=== PATIENT | female | born 1990 | race Caucasian/White ===

== ENCOUNTER 2017-03-31 00:02 | Day surgery (SDC) | payer OTHER ==
[2017-03-29 15:07] VITALS: BP 143/85
[2017-03-29 16:26] LABS: BASOPHIL % 0.3 % (0.0-0.2); EOSINOPHIL % 0.3 % (0.0-5.0); HEMATOCRIT 37.1 % (36.0-46.0); HEMOGLOBIN 11.9 g/dL (12.0-15.0); LYMPHOCYTES # 3.8 10^3/uL (1.0-4.8); LYMPHOCYTES % 32.5 % (24.0-44.0); MEAN CELL HGB CONCENTRATION 32.1 g/dL (33-37); MEAN CORP VOLUME 90.3 fL (78-100); MEAN PLATELET VOLUME 11.1 fL (7.8-11.0); MONOCYTES # 0.9 10^3/uL (0.3-0.8); MONOCYTES % 7.9 % (5.0-12.0); NEUTROPHIL # 6.8 10^3/uL (1.8-7.7); NEUTROPHILS % 58.7 % (41.0-85.0); RED CELL DISTRIBUTION WIDTH 14.9 % (11.5-14.5); WHITE BLOOD CELL 11.6 10^3/uL (4.5-11.0)
[2017-03-29 16:41] LABS: CARBON DIOXIDE 26.5 mmol/L (20.0-32)
[2017-03-31] VITALS (8 sets, daily range): BP systolic 125–136; BP diastolic 68–78
[~2017-03-31] VITALS: Ht 167.6 cm; Wt 112.5 kg
[~2017-03-31 00:02] MED LIST: HYDR25TA9 PO; SERT50TA PO
[2017-03-31] MEDS ORDERED: LACTATED RINGERS 1,000 ML ONE (05:17)
[2017-03-31] MEDS ORDERED: LEVAQUIN 100 ML IV ONE ×2 (05:17→06:00)
[2017-03-31] MEDS ORDERED: LACTATED RINGERS 1,000 ML IV SCH ×2 (06:00→08:30)
[2017-03-31] MEDS ORDERED: DECADRON ONE (06:53)
[2017-03-31] MEDS ORDERED: ZOFRAN ONE (06:54)
[2017-03-31] MEDS ORDERED: XYLOCAINE ONE (06:54)
[2017-03-31] MEDS ORDERED: VERSED ONE (06:55)
[2017-03-31] MEDS ORDERED: SUBLIMAZE ONE (06:55)
[2017-03-31] MEDS ORDERED: DIPRIVAN IV ONE (06:55)
[2017-03-31] MEDS ORDERED: SODIUM CHLORIDE IR ONE ×2 (07:15)
[2017-03-31] MEDS ORDERED: ZOFRAN IV PRN (08:30)
[2017-03-31] MEDS ORDERED: NORCO 7.5MG PO PRN (08:30)
[2017-03-31] MEDS ORDERED: SUBLIMAZE IV PRN (08:30)
--- NOTE | 2017-03-31 10:23 | DIREP ---
PROCEDURE:XRAY UROGRAPHY RETROGRADE COMPARISON:None. INDICATIONS:retrograde 46.4 secs fluro TECHNIQUE:7 spot views from a retrograde pyelogram. 46.4 seconds of fluoroscopy was used. FINDINGS:No hydronephrosis or filling defects. CONCLUSION:Negative retrograde pyelogram. See procedure note for details. Dictated by: Aggie Lopez MD on 03/31/2017 at 10:21 AM
--- NOTE | 2017-03-31 11:07 | OPH ---
DATE OF SURGERY: 03/31/2017 DESCRIPTION OF PROCEDURE: The patient was brought to the cystoscopy room and was put in supine position on the cystoscopy table. The patient was given an LMA general anesthesia and the patient was placed in the lithotomy position. The genitalia was then prepped and draped aseptically in the usual manner. First, a 22-[place] cystoscope was inserted per urethra up to the bladder. With the use of the right angle lens, the bladder was visualized. There was no tumor, no calculi, no ulcerations seen. The urethra was also checked and there was severe congestion noted. Both ureteral orifices were normal. A right retrograde was initially performed with the inserting a 7-[place] ureteral catheter at the right orifice, injected with Isovue dye and the right kidney and the ureter revealed no evidence of lesion and no evidence of obstruction and no stone seen also. Ureteroscopy was also performed using a 7-[place] semirigid ureteroscope and the findings were the same with no evidence of lesion and no obstruction noted. After this was done, the instrument was removed and the cystoscope was inserted to the bladder and the bladder was emptied with fluid. After that, the instrument was removed and the procedure was terminated. FINAL DIAGNOSES: Hemorrhagic . The procedure was terminated. The patient was awakened, was transferred to the recovery room in stable condition. Galdino Costello MD DR: FERMIN/laura JOB# [id number]
== END 2017-03-31 09:03 | disposition home or self-care (01) | DRG 696 ==
LOC: SDC 00:02
PROVIDERS: ATTEND Urology
DX: R31.9 Hematuria, unspecified (principal); N28.89 Other specified disorders of kidney and ureter; N36.8 Other specified disorders of urethra; F41.8 Other specified anxiety disorders; I10 Essential (primary) hypertension; K21.9 Gastro-esophageal reflux disease without esophagitis; G47.33 Obstructive sleep apnea (adult) (pediatric); E66.01 Morbid (severe) obesity due to excess calories; Z68.41 Body mass index [BMI] 40.0-44.9, adult; J45.909 Unspecified asthma, uncomplicated; F17.210 Nicotine dependence, cigarettes, uncomplicated; Z98.890 Other specified postprocedural states; Z90.49 Acquired absence of other specified parts of digestive tract; Z88.0 Allergy status to penicillin; Z88.8 Allergy status to other drugs, medicaments and biological substances; M19.90 Unspecified osteoarthritis, unspecified site
CPT/HCPCS: 36415; 52351; 74420; 76000; 80051; 81025; 82565; 82570; 84520; 85025; 85610; 85730; J1100; J1956; J2250; J2405; J3010; J3490 ×2; J7030 ×2; J7120; C1769

== ENCOUNTER 2017-04-30 02:00 | Day surgery (SDC) | payer OTHER ==
[~2017-04-30] VITALS: Ht 167.6 cm; Wt 112.5 kg
[2017-04-30] VITALS (9 sets, daily range): BP systolic 123–159; BP diastolic 78–84
[2017-04-30] MEDS ORDERED: LACTATED RINGERS 1,000 ML ONE (05:01)
[2017-04-30] MEDS ORDERED: LACTATED RINGERS 1,000 ML IV SCH ×2 (06:00→10:30)
[2017-04-30] MEDS ORDERED: DECADRON ONE (06:21)
[2017-04-30] MEDS ORDERED: ZOFRAN ONE (06:21)
[2017-04-30] MEDS ORDERED: XYLOCAINE ONE (06:21)
[2017-04-30] MEDS ORDERED: TORADOL ONE (06:21)
[2017-04-30] MEDS ORDERED: VERSED ONE (06:22)
[2017-04-30] MEDS ORDERED: DIPRIVAN IV ONE (06:22)
[2017-04-30] MEDS ORDERED: SUBLIMAZE ONE (06:22)
[2017-04-30] MEDS ORDERED: LASIX ONE (06:26)
[2017-04-30] MEDS ORDERED: LASIX IV ONE (08:00)
[2017-04-30] MEDS ORDERED: TRAM50TA PO (10:22)
[2017-04-30] MEDS ORDERED: CIPR500T86 PO (10:22)
[2017-04-30] MEDS ORDERED: LASIX IV SCH (10:30)
[2017-04-30] MEDS ORDERED: NORCO 7.5MG PO PRN (10:30)
--- NOTE | 2017-04-30 10:39 | OPH ---
DATE OF SURGERY: 04/30/2017 PREOPERATIVE DIAGNOSIS: Calculus, left kidney. FINAL DIAGNOSIS: Calculus, left kidney. PROCEDURES: Left ESWL. DESCRIPTION OF PROCEDURE: The patient was brought to the lithotripsy room, was put in supine position on the lithotripsy table. A left preop renal ultrasound was initially performed, which revealed a large stone in the lower pole of the left kidney measuring 1 cm in diameter. There are no cysts or masses noted. After the patient was given an LMA general anesthesia and after localization of the stone with the use of an ultrasound and fluoroscopy, a left ESWL was then performed using [employer]ier Compact Delta II Lithotripter. A total of 1500 shockwaves were delivered to the stones in the lower pole of the left kidney under ultrasound guidance. After fragmentation of the stone as noted in the ultrasound, the procedure was terminated. The patient was awakened, was transferred to the recovery room in stable condition. Galdino Costello MD DR: FERMIN/laura JOB# [id number]
[2017-04-30] MEDS ORDERED: SUBLIMAZE IV PRN (11:00)
[2017-04-30] MEDS ORDERED: NORCO 7.5MG PO ONE (11:00)
== END 2017-04-30 11:31 | disposition home or self-care (01) | DRG 694 ==
LOC: SURG 02:00
PROVIDERS: ATTEND Urology
DX: N20.0 Calculus of kidney (principal); I10 Essential (primary) hypertension; K21.9 Gastro-esophageal reflux disease without esophagitis; J45.909 Unspecified asthma, uncomplicated; M19.90 Unspecified osteoarthritis, unspecified site; G47.33 Obstructive sleep apnea (adult) (pediatric); E66.01 Morbid (severe) obesity due to excess calories; Z98.890 Other specified postprocedural states; Z79.899 Other long term (current) drug therapy; Z88.0 Allergy status to penicillin; Z88.8 Allergy status to other drugs, medicaments and biological substances; F17.210 Nicotine dependence, cigarettes, uncomplicated; Z68.41 Body mass index [BMI] 40.0-44.9, adult; Z90.49 Acquired absence of other specified parts of digestive tract
CPT/HCPCS: 50590; 81025; J1100; J1885; J2250; J2405; J3010; J3490 ×2; J7120; J1940